=== PATIENT | male | born 1990 | race African-American/Black ===

== ENCOUNTER 2024-04-04 18:33 | Emergency (ER) | payer MEDICAID ==
[~2024-04-04] VITALS: Ht 182.9 cm; Wt 97.5 kg
[2024-04-04 18:39] VITALS: BP 114/67; PULSE 68; RESP 16; TEMP 97.3; O2SAT 99
== END 2024-04-04 20:12 | disposition home or self-care (01) ==
LOC: MED 18:33
DX: R51.9 Headache, unspecified (principal); R42 Dizziness and giddiness; R53.1 Weakness; R11.0 Nausea; T50.995A Adverse effect of other drugs, medicaments and biological substances, initial encounter; Y92.89 Other specified places as the place of occurrence of the external cause
CPT/HCPCS: 99283